=== PATIENT | male | born 1960 | race Caucasian/White ===

== ENCOUNTER 2023-04-08 13:07 | Emergency (ER) | payer OTHER, SELFPAY ==
[2023-04-08 13:24] VITALS: BP 122/87; PULSE 18; RESP 18; TEMP 36.7; O2SAT 97; BMI 23.7
[2023-04-08 13:38] VITALS: BP 114/81; PULSE 84; RESP 18; TEMP 36.6; O2SAT 97; BMI 22.5
--- NOTE | 2023-04-08 14:16 | ED.WOUNDLAC ---
HPI - Wound/Laceration General Chief Complaint: Wound/Laceration Stated Complaint: bleeding from R arm/ had surgery 04/03 Time Seen by Provider: 04/08/23 13:47 Source: patient Mode of arrival: ambulatory Limitations: other (poor historian) History of Present Illness HPI narrative: 63 yo male with PMH of HTN, heart disease states he takes and aspirin and a blood thinner but doesn't know the name. He presented to outside hospital in [place] for R elbow infected bursitis after hitting a wall he states he then was transferred to [facility] and had surgery done this Wednesday he is on cephalexin. He notes he went for follow up in the office today in [place] and had the dressing and packing removed - he notes it was rough and painful. He states on the way home he felt a pop after doing something reaching to the radio and then felt a sharp pain and blood on his pant legs. He notes he lost a pint or two prior to coming in. He presented to triage and had 8 4 x 4, 2 ABD and MARLI wrap that he bled through. He bled through another 2 ABD with me. He has sensation and pain intact in fingers. He states he has no dyspnea or dizziness. Onset (ago): minute(s) (30) Extremity Location: right: elbow Place: home Patient tetanus UTD: Yes Context: accidental Associated symptoms: pain Treatments prior to arrival: bandage Related Data Allergies Allergy/AdvReac Type Severity Reaction Status Date / Time Penicillins Allergy Intermediate Unknown Verified 04/08/23 13:23 Review of Systems Review of Systems: Constitutional : No Fever, No Chills Cardiovascular : No Chest Pain, No SOB Respiratory : No Cough, No Dyspnea Gastrointestinal : No Nausea, No Vomiting, No Diarrhea, No abdominal Pain Genitourinary : No Dysuria, No Hematuria Musculoskeletal : positive joint pain, No Myalgias, No Joint Swelling, pos bleeding Skin : No Skin lacerations, No rash Neuro : No Weakness, No Numbness, No Loss of Consciousness, No Dizziness, No Headache Psych : No Anxiety/Panic, No Depression All other systems reviewed and are negative [facility] Past Medical History Attestation statement: The following information was validated with the patient. Medical History HTN (hypertension) Heart disease Social History Social History Patient Tobacco Use Status: Tobacco use Unknown Advance Directives: No Advance Directives Information Provided: Yes Physical Exam Vital Signs: Vital Signs: Last Vital Signs Temp 97.8 F 04/08/23 13:38 Pulse 84 04/08/23 13:38 Resp 18 04/08/23 13:38 BP 114/81 04/08/23 13:38 Pulse Ox 97 04/08/23 13:38 O2 Del Method Room Air 04/08/23 13:38 BMI result Body Mass Index 22.5 Appearance: Alert. Oriented X3. No acute distress. Eyes: Pupils equal, round and reactive to light. ENT: Pharynx normal. Neck: Normal inspection. Neck supple. CVS: Normal heart rate and rhythm. Pulses normal. Respiratory: No respiratory distress. Breath sounds normal. Abdomen: Soft and nontender. Skin: Skin warm and dry. Normal skin color. Normal skin turgor. Extremities: R posterior arm forearm to above elbow large surgical incision elliptical with brisk bleeding through multiple dressings - he is distal NV intact, there is a spurting vessel across the room appears to be on the medial aspect of the incision just medial to olecranon area Neuro: Oriented X 3. No motor deficit. No sensory deficit. Course Course Course Narrative: pain improved with IV morphine and dilaudid hemoglobin 11.2 on 04/04 signed out pending repeat H/H and observation to Dr. Thompson Medications Administered Generic Name Dose Route Start Last Admin Trade Name Freq PRN Reason Stop Dose Admin Nicotine Polacrilex 4 mg 04/08/23 15:05 04/08/23 15:17 Nicotine Polacrilex 2 Mg Gum BUCCAL 4 mg Q1H PRN Administration Nicotine Cravings Discontinued Medications Generic Name Dose Route Start Last Admin Trade Name Freq PRN Reason Stop Dose Admin Hydromorphone HCl 1 mg 04/08/23 14:51 04/08/23 14:54 Hydromorphone Hcl 1 Mg/Ml Syringe IVPUSH 04/08/23 14:52 1 mg ONCE ONE Administration Protocol Sodium Chloride 1,000 mls @ 999 mls/hr 04/08/23 14:15 04/08/23 14:30 Ns IV 04/08/23 15:15 999 mls/hr .Q1H1M BRAYAN Administration Lidocaine/Epinephrine 10 ml 04/08/23 14:19 04/08/23 14:33 Lidocaine Hcl 1%/Epi 1:100,000 10 Ml Vial SUBCUT 04/08/23 14:20 10 ml ONCE ONE Administration Morphine Sulfate 4 mg 04/08/23 14:04/08/23 14:29 Morphine Sulfate 4 Mg/Ml Cartridge IVPUSH 04/08/23 14:09 4 mg ONCE ONE Administration Protocol Ondansetron HCl 4 mg 04/08/23 14:08 04/08/23 14:30 Ondansetron Hcl 4 Mg/2 Ml Vial IVPUSH 04/08/23 14:09 4 mg ONCE ONE Administration Medical Decision Making Medical Decision Making MDM Narrative: 63 yo male with recent surgical procedure and now with wound vac removal - sig bleeding and pulsating bleed across room on arrival - he is distal NV intact call to vascular surgery for assistance. labs and observation Differential Diagnosis Differential Diagnoses: The differential diagnosis associated with the presentation includes arterial bleed Admission/Observation Consideration of admission/observation: Escalation of care including admission/observation considered Consult Healthcare Provider Management of the patient was discussed with: Adhesive Bandage Making Operator (vascular surgery consulted given degree of bleeding and need for hemostatis ) Lab Data [facility] Lab Attestation statement: I reviewed the patient's lab results. 04/08/23 15:21 04/08/23 15:21 Labs: Lab Results 04/08/23 Range/Units 15:21 WBC 5.3 (4.8-10.8) X10*3/uL RBC 3.24 L (4.60-5.80) X10*6/uL Hgb 9.5 L (14.0-18.0) g/dl Hct 29.6 L (42.0-52.0) % MCV 91.4 (80.0-98.0) fL MCH 29.3 (27.0-33.0) pg MCHC 32.1 (31.0-36.0) g/dl RDW 13.9 (11.0-16.0) % Plt Count 404 H (160-400) X10*3/uL MPV 8.8 L (9.4-12.4) fL Immature Gran % (Auto) 0.2 (0.0-0.4) % Neut % (Auto) 46.0 (45-73) % Lymph % (Auto) 36.6 (20-40) % Ingham % (Auto) 14.2 H (2-11) % Eos % (Auto) 1.9 (0-4) % Baso % (Auto) 1.1 (0-2) % Lymph # (Auto) 1.9 (1.2-4.9) X10*3/uL [place] # (Auto) 0.8 (0.1-1.2) X10*3/uL Eos # (Auto) 0.1 (0.0-0.4) X10*3/uL Baso # (Auto) 0.1 (0.0-0.2) X10*3/uL Abs Immat Gran (auto) 0.01 (0.00-0.03) X10*3/uL Absolute Neuts (auto) 2.4 (2.0-8.3) x10*3/uL Absolute Nucleated RBC 0.000 (0.0-0.012) X10*3/uL Nucleated RBC % (auto) 0.0 (0.0-0.2) /100WBC External Record Review External record reviewed: Outpatient record Critical Care Time Critical Care Time Critical Care Time: Yes Total Critical Care Time: 35 Attestation: stat vascular consult, IV morphine improved pain, treatment of possible threat to limb I attest to this time spent taking care of the patient Discharge Plan Discharge Clinical Impression: Arterial hemorrhage, ABLA (acute blood loss anemia) Patient Disposition: Still a Patient Instructions: Care For Your Stitches (ED), Postoperative Bleeding (ED), Anemia (ED) Additional Instructions: you had to have stitches placed today with surgicel to control the bleeding. your surgeon needs to look at this and treat it at next visit. Please return for fevers, yellow drainage, worsening pain, bleeding, numbness or cold hand. keep a dressing on as planned - clean and dry. keep the special dressing in place (surgicel) and let it fall off on its own do not try to remove
[2023-04-08] MEDS: Morphine Sulfate 4 MG/ML CARTRIDGE IVPUSH (14:29)
[2023-04-08] MEDS: ondansetron HCL 4 MG/2 ML VIAL IVPUSH (14:30)
[2023-04-08] MEDS: 0.9 % Sodium Chloride 1,000 ML 999 ML IV (14:30)
[2023-04-08] MEDS: Lidocaine HCl 1%/Epi 1:100,000 10 ML VIAL SUBCUT (14:33)
[2023-04-08] MEDS: HYDROmorphone HCl 1 MG/ML SYRINGE IVPUSH (14:54)
[2023-04-08] MEDS: Nicotine Polacrilex 2 MG GUM 4 MG BUCCAL (15:17)
[2023-04-08 15:29] LABS: MANUAL DIFF FLAG NO
[2023-04-08 15:30] LABS: Basophils Absolute Auto 0.1 X10*3/uL (0.0-0.2); Basophils Percent Auto 1.1 % (0-2); Eosinophils Absolute Auto 0.1 X10*3/uL (0.0-0.4); Eosinophils Percent Auto 1.9 % (0-4); Hematocrit 29.6 % (42.0-52.0); Hemoglobin 9.5 g/dl (14.0-18.0); Imm Gran Abs Auto 0.01 X10*3/uL (0.00-0.03); Imm Gran Pct Auto 0.2 % (0.0-0.4); Lymphocytes Absolute Auto 1.9 X10*3/uL (1.2-4.9); Lymphocytes Percent Auto 36.6 % (20-40); Mean Corpuscular HGB Conc 32.1 g/dl (31.0-36.0); Mean Corpuscular Hemoglobin 29.3 pg (27.0-33.0); Mean Corpuscular Volume 91.4 fL (80.0-98.0); Mean Platelet Volume 8.8 fL (9.4-12.4); Monocytes Absolute Auto 0.8 X10*3/uL (0.1-1.2); Monocytes Percent Auto 14.2 % (2-11); Neutrophils Absolute Auto 2.4 x10*3/uL (2.0-8.3); Platelet Count 404 X10*3/uL (160-400); Red Blood Count 3.24 X10*6/uL (4.60-5.80); Red Cell Distribution Width 13.9 % (11.0-16.0); White Blood Count 5.3 X10*3/uL (4.8-10.8)
[2023-04-08 15:39] LABS: INTERNATIONAL NORM RATIO 1.1 (0.9-1.1)
[2023-04-08 15:45] LABS: Anion Gap 13 (12-20); Blood Urea Nitrogen 17 mg/dL (9-16); Calcium 8.7 mg/dL (8.4-10.2); Carbon Dioxide 21 mmol/L (22-29); Chloride 109 mmol/L (96-108); Creatinine Clr Calc Pharmacy 100.4; Estimated Glomerular Filt Rate > 60; Glucose Random 98 mg/dL (60-115); Potassium 4.1 mmol/L (3.3-5.1); Sodium 139 mmol/L (135-145)
--- NOTE | 2023-04-08 15:54 | PC.NURSE ---
pt presented from triage w arterial bleed - dressing applied in triage. 22G IV placed left forearm, pt medicated for 10/10 pain, 1L NS running. vascular surgeon at bedside for repair, lidocaine administered by provider, wound cleaned and dressed by Dr Maurer. pt tolerated well w additional pain medication. tech at bedside to obtain labs.
--- NOTE | 2023-04-08 16:08 | MHC.EDTECH ---
okay to draw second type and screen with [address] rizo
--- NOTE | 2023-04-08 16:15 | P.CONGS_ITS ---
History of Present Illness Consult details Consult date: 04/08/23 Reason for consult: other (Right upper extremity bleed) Narrative: Complex 63-year-old gentleman who originally reported he injured his right elbow in a trip to [place]. Reports that he hit it against the wall. It appears that he developed septic bursitis. This was treated at [facility] with open debridement. It appears that they had been treating it with a wound VAC. It had been slowly closing but most recently he had an office visit earlier today. It appears that there was a wound VAC which was removed and was quite adherent and quite painful form. It was subsequently removed and the dressing was changed and he was discharged. He reports that at that point there was significant bleeding from that arm. It continue to persist in he presented to our emergency room. He now presents for vascular evaluation. Review of Systems 2 Review of Systems: Yes all other systems are reviewed and are negative Constitutional: Constitutional: Reports no additional constitutional complaints ENT: Reports Normal hearing present Cardiovascular: Cardiovascular: Denies chest pain, Denies chest pain at rest, Denies chest pain with activity and Denies pedal edema Respiratory: Respiratory: Denies cough Gastrointestinal: Gastrointestinal: Denies abdominal pain Musculoskeletal: Musculoskeletal: Denies abnormal gait, Denies muscle cramps and Denies radiating pain into limb Integumentary/Breasts: Skin/Breast: Denies skin ulcer and Denies wounds Neurologic: Reports Normal hearing present and Denies abnormal gait Psychiatric: Psychiatric: Reports no additional psychiatric complaints [facility] Past Medical History Medical History HTN (hypertension) Heart disease Social History Social History Patient Tobacco Use Status: Tobacco use Unknown Advance Directives: No Advance Directives Information Provided: Yes Meds Allergies Allergy/AdvReac Type Severity Reaction Status Date / Time Penicillins Allergy Intermediate Unknown Verified 04/08/23 13:23 Active Medications: Current Medications Nicotine Polacrilex (Nicotine Polacrilex 2 Mg Gum) 4 mg BUCCAL Q1H PRN PRN Reason: Nicotine Cravings Last Admin: 04/08/23 15:17 Dose: 4 mg Physical Exam 2 Vital Signs: Vital Signs: Last Vital Signs Temp 97.8 F 04/08/23 13:38 Pulse 84 09/28/23 13:38 Resp 18 04/08/23 13:38 BP 114/81 04/08/23 13:38 Pulse Ox 97 04/08/23 13:38 O2 Del Method Room Air 04/08/23 13:38 BMI result Body Mass Index 22.5 Const: General: cooperative, healthy appearing and comfortable O rientation/consciousness: oriented to person, oriented to place and oriented to time HEENT: Head: Yes normal to inspection Neck: Neck: Yes normal visual inspection Carotids: no bruits Chest: Chest palpation & inspection: normal inspection of the chest Resp: Effort & Inspection: normal respiratory effort and able to speak in complete sentences Auscultation: clear to auscultation bilaterally, no crackles, no rales, no rhonchi and no wheezes Cardio: Rate: regular rate Rhythm: regular rhythm Heart sounds: S1 normal heart sound present and S2 normal heart sound present Bruits: no carotid bruits Peripheral pulses: Peripheral pulses 2+ throughout GI: Inspection: Yes normal to inspection Skin: Other: Right upper extremity through the elbow over the lateral aspect of the arm large opening. The superior aspect above the elbow appear to be a bleeding site. This was irrigated clear. A suture lig was thrown over the what was believed to be the bleeding site. Multiple sutures of 3-0 Polysorb was taken down through this area. And the superficial skin layer was closed with a 3-0 Monosof. This appeared to hold the dressing. Surgicel was placed inside. The dressing was then placed with Xeroform Kerlix Humberto wrap and a Coban. At the conclusion there was palpable brachial radial and ulnar pulses. Wounds: wounds noted Hair: normal Neuro: General: oriented to person, oriented to place and oriented to time Cranial nerves: Yes CN's II-XII intact bilaterally and Yes Normal hearing present Cognition (Neuro): normal cognition Motor exam (neuro): 5/5 motor strength present throughout Extrem: Other: venous exam: No significant superficial varicosities or spider telangiectasias, minimal edema General: No clubbing, No cyanosis and No edema Psych: Appearance: grossly normal Mental Status: mental status grossly normal Speech and movement: Normal speech and movement present Results Labs 04/08/23 15:21 04/08/23 15:21 Labs: Abnormal lab results 04/08/23 Range/Units 15:21 RBC 3.24 L (4.60-5.80) X10*6/uL Hgb 9.5 L (14.0-18.0) g/dl Hct 29.6 L (42.0-52.0) % Plt Count 404 H (160-400) X10*3/uL MPV 8.8 L (9.4-12.4) fL Emery % (Auto) 14.2 H (2-11) % Chloride 109 H (96-108) mmol/L Carbon Dioxide 21 L (22-29) mmol/L BUN 17 H (9-16) mg/dL Short CBC 04/08/23 Range/Units 15:21 WBC 5.3 (4.8-10.8) X10*3/uL Hgb 9.5 L (14.0-18.0) g/dl Hct 29.6 L (42.0-52.0) % Plt Count 404 H (160-400) X10*3/uL BMP 04/08/23 15:21 Sodium 139 Potassium 4.1 Chloride 109 H Carbon Dioxide 21 L BUN 17 H Creatinine 0.76 Calcium 8.7 All other labs normal. Assessment and Plan (1) Arterial hemorrhage: Status: Acute Plan In short patient had bleeding from this open wound surface bed. This was suture-ligated and packed. It appeared to be hemostatic. Would recheck labs and transfuse as required. He is unclear about his anticoagulation status. If stable stable from my perspective for discharge. He can follow as an outpatient with [facility] as they provided the initial care and most recently changed is wound VAC. he will follow up with us on an as-needed basis. Time Spent With Patient Time: Total time managing care of this patient today _60___ minutes. Between evaluation of patient evaluation of chart management of services in control bleeding Procedures Date of Service Date of Service: 04/08/23
[2023-04-08 17:24] VITALS: BP 103/63; PULSE 108; RESP 18; O2SAT 100
== END 2023-04-08 17:25 | disposition left against medical advice (07) ==
PROVIDERS: Emergency Provider Emergency Medicine
DX: L76.22 Postprocedural hemorrhage of skin and subcutaneous tissue following other procedure (principal); D62 Acute posthemorrhagic anemia; Y83.8 Other surgical procedures as the cause of abnormal reaction of the patient, or of later complication, without mention of misadventure at the time of the procedure; Y82.8 Other medical devices associated with adverse incidents; Y92.9 Unspecified place or not applicable; I11.0 Hypertensive heart disease with heart failure; I50.9 Heart failure, unspecified; Z88.0 Allergy status to penicillin
CPT/HCPCS: 12001; 36415; 80048; 85025; 85610; 86850; 86900; 86901; 96361; 96374; 96375; 99283; 99284; J1170; J2270; J2405

== ENCOUNTER → 2023-04-08 13:57 | Outpatient (BNV) | payer OTHER, MEDICAID, SELFPAY | PROVIDERS: Emergency Provider Emergency Medicine; Visit Provider Surgery Vascular Surgery | DX: R58 Hemorrhage, not elsewhere classified (principal) | CPT/HCPCS: 99285 ==